=== PATIENT | female | born 1945 ===

== ENCOUNTER 2017-04-28 09:05 | Day surgery (SDC) | payer MEDICARE, OTHER ==
[~2017-04-28] VITALS: Ht 162.6 cm; Wt 123.1 kg
[~2017-04-28 09:05] MED LIST: ALBU90OI INH; AMLO5 PO; ASCO500 PO; ATOR40TA PO; Acidophilus La100 GM PO; Aspir 8181 MG PO; B Complex-Foli1 EACH PO; CHLO25B PO; COQ1050 MG PO; Cinnamon500 MG PO; DOCU100 PO; FISH1000 PO; FLUSAL2505 INH; Fibercon625 MG PO; GABA300T24 PO; GINGER ROOT550 MG PO; GLUCOSAMIN-CHO1 EACH PO; Garlic Oil1000 MG PO; HYDMOR4 PO; Hard Nails2500 MCG PO; Humalog100 UNIT/1; INSDET100 SC; INSU100I6; LISI20 PO; MAGOXI400 PO; MILK THISTLE1 GM PO; PANT40 PO; QVAR7.3 G1 INH; Super B Comple150 MG PO; TIOT18 INH; TOCO400 PO; VICODIN 5-3001 EACH PO; VITAMIN D35000 UNI1 PO; Vitamin A8000 UNIT PO
[2017-04-28] MEDS ORDERED: GLIP10 (10:37)
[2017-04-28] MEDS ORDERED: TRULICITY0.75 MG/0. (10:38)
== END 2017-04-28 11:10 | disposition home or self-care (01) ==
LOC: ORSCSDS 09:05
PROVIDERS: Anesthesiology
PROC: 3E0R33Z Introduction of Anti-inflammatory into Spinal Canal, Percutaneous Approach (ICD-10-PCS; principal; 2017-04-28 10:30)
DX: M51.16 Intervertebral disc disorders with radiculopathy, lumbar region (principal); I10 Essential (primary) hypertension; K21.9 Gastro-esophageal reflux disease without esophagitis; Z99.81 Dependence on supplemental oxygen; J44.9 Chronic obstructive pulmonary disease, unspecified; E11.9 Type 2 diabetes mellitus without complications; F17.210 Nicotine dependence, cigarettes, uncomplicated; Z79.4 Long term (current) use of insulin; Z79.82 Long term (current) use of aspirin; Z79.899 Other long term (current) drug therapy
CPT/HCPCS: J1040